=== PATIENT | female | born 1975 | race American Indian/Alaskan Native ===

== ENCOUNTER 2018-08-03 22:05 | Emergency (ER) | payer MEDICAID, OTHER ==
[2018-08-03 22:05] VITALS: BMI 43.5
[2018-08-04 00:12] LABS: BASO % 0.4 % (0.0-2.0); EOS # 0.1 K/uL (0.0-0.7); EOS % 1.6 % (0.0-4.0); HEMOGLOBIN 11.5 g/dL (12.0-16.0); LYMPH % 21.8 % (20.0-40.0); MEAN CELL VOLUME 81.9 fl (81.0-99.0); MEAN CORPUSCULAR HEMOGLOBIN 26.5 pg (27.0-31.0); MEAN CORPUSCULAR HGB CONC 32.4 g/dL (33.0-37.0); MEAN PLATELET VOLUME 9.2 fl (7.2-11.7); MONO # 0.8 K/uL (0.0-0.8); MONO % 8.3 % (0.0-10.0); NEUT # 6.2 K/uL (1.8-7.0); NEUT % 67.9 % (50.0-75.0); RBC 4.32 Mil/uL (3.80-5.20); RED CELL DISTRIBUTION WIDTH 13.9 % (11.5-14.5); WHITE BLOOD COUNT 9.1 K/uL (4.8-10.8)
[2018-08-04 00:20] LABS: BLOOD UREA NITROGEN 14 mg/dl (7-17); GFR NON-AFRICAN AMERICAN > 60
[2018-08-04 01:08] LABS: SQUAMOUS EPITHIAL 2 /hpf (0-5); URINE BILIRUBIN NEGATIVE (NEGATIVE); URINE BLOOD SMALL (NEGATIVE); URINE CLARITY SLIGHTY-CLOUDY (Clear); URINE COLOR YELLOW (YELLOW); URINE GLUCOSE (UA) NEG (NEGATIVE); URINE LEUKOCYTE ESTERASE NEG Leu/uL (Negative); URINE PROTEIN NEGATIVE (NEGATIVE)
--- NOTE | 2018-08-04 01:34 | ED PDOC ---
HPI: Abdomen Time Seen by Provider: 08/03/18 22:40 Chief Complaint (Nursing): Female Genitourinary Chief Complaint (Provider): Abdominal pain History Per: Patient History/Exam Limitations: no limitations Onset/Duration Of Symptoms: Days Current Symptoms Are (Timing): Still Present Additional Complaint(s): 42 year old female who is 4 weeks presents to the ED for an evaluation of worsening abdominal pain with increased vaginal bleeding. Patient states she has vaginal bleeding since last week for which she went to [facility] where she received an US that presented IUP and HCG count around 800. Patient was discharged home with follow-up instructions. Patient reports she has developed lower abdominal pain with heavy vaginal bleed with no passage of t issue or clots and denies any other symptoms. PMD: no family provider Abnormal Vaginal Bleeding: Yes Past Medical History Reviewed: Historical Data, Nursing Documentation, Vital Signs Vital Signs: Last Vital Signs Temp 998.5 F H 08/03/18 22:08 Pulse 96 H 08/03/18 22:08 Resp 16 08/03/18 22:08 BP 132/83 08/03/18 22:08 Pulse Ox 100 08/03/18 22:08 Primary Care Provider: FAMILY PROVIDER,NO - Medical History PMH: No Chronic Diseases Denies: Anxiety, Bipolar Disorder, Depression, Personality Disorder, Post Traumatic Stress Disorder, Schizophrenia - Family History Family History: States: Unknown Family Hx - Immunization History Hx Tetanus Toxoid Vaccination: No Hx Influenza Vaccination: No Hx Pneumococcal Vaccination: No - Home Medications Home Medications: Ambulatory Orders Medication Instructions Recorded No Known Home Med 07/28/18 - Allergies Allergies/Adverse Reactions: Allergies Allergy/AdvReac Type Severity Reaction Status Date / Time No Known Allergies Allergy Verified 08/03/18 22:06 Review of Systems ROS Statement: Except As Marked, All Systems Reviewed And Found Negative Cardiovascular: Negative for: Chest Pain Respiratory: Negative for: Cough Gastrointestinal: Positive for: Abdominal Pain. Negative for: Nausea, Vomiting, Diarrhea Genitourinary Female: Positive for: Vaginal Bleeding. Negative for: Dysuria, Frequency, Incontinence Physical Exam - Reviewed Nursing Documentation Reviewed: Yes Vital Signs Reviewed: Yes - Physical Exam Appears: Positive for: Non-toxic, No Acute Distress Head Exam: Positive for: ATRAUMATIC, NORMAL INSPECTION, NORMOCEPHALIC Skin: Positive for: Normal Color, Warm, Dry Eye Exam: Positive for: EOMI, Normal appearance, PERRL ENT: Positive for: Normal ENT Inspection Neck: Positive for: Normal, Painless ROM, Supple. Negative for: Decreased ROM Cardiovascular/Chest: Positive for: Regular Rate, Rhythm. Negative for: Murmur Respiratory: Positive for: Normal Breath Sounds. Negative for: Respiratory Distress Gastrointestinal/Abdominal: Positive for: Soft, Tenderness (lower abdomen ) Pelvic Exam: Positive for: Other (pelvic exam differed as patient states she wants to wait) Back: Positive for: Normal Inspection Extremity: Positive for: Normal ROM. Negative for: Tenderness, Pedal Edema, Deformity Neurological/Psych: Positive for: Awake, Alert, Normal Tone, Oriented (x3). Negative for: Motor/Sensory Deficits - Laboratory Results Result Diagrams: 08/04/18 00:07 08/04/18 00:07 Lab Results: Urine Color Yellow (YELLOW) 08/04/18 00:52 Urine Clarity Slighty-cloudy (Clear) 08/04/18 00:52 Urine pH 6.0 (5.0-8.0) 08/04/18 00:52 Ur Specific [place] 1.026 (1.003-1.030) 08/04/18 00:52 Urine Protein Negative mg/dL (NEGATIVE) 08/04/18 00:52 Urine Glucose (UA) Neg mg/dL (NEGATIVE) 08/04/18 00:52 Urine Ketones Negative mg/dL (NEGATIVE) 08/04/18 00:52 Urine Blood Small (NEGATIVE) 08/04/18 00:52 Urine Nitrate Negative (NEGATIVE) 08/04/18 00:52 Urine Bilirubin Negative (NEGATIVE) 08/04/18 00:52 Urine Urobilinogen 2.0 mg/dL (0.2-1.0) H 08/04/18 00:52 Ur Leukocyte Esterase Neg Bahman/uL (Negative) 08/04/18 00:52 Urine RBC (Auto) 5 /hpf (0-3) H 08/04/18 00:52 Urine Microscopic WBC 2 /hpf (0-5) 08/04/18 00:52 Ur Squamous Epith Cells 2 /hpf (0-5) 08/04/18 00:52 Beta HCG, Quant 991.18 mIU/mL 08/04/18 00:07 - ECG O2 Sat by Pulse Oximetry: 100 (RA) Pulse Ox Interpretation: Normal Medical Decision Making Medical Decision Making: Time: 2247 Impression: threatened . Will order UTI, labs, HCG, pelvic US BBK type and screen BMP BETA-HCG, quantitative CBC w/ differential Acetaminophen 650mg UA Preg 1st trimester/OB TV US Re-evaluation 252 Obstetric ultrasound, first trimester. Indication: Vaginal bleeding. Technique: Real-time ultrasound images were obtained. Findings: Anteverted uterus measuring 8.5x6 cm. Normal cervical length measuring 2.9 cm. Diffusely thickened endometrium measuring 25 mm. Single, live intrauterine gestation. The gestational sac measures 1.06 cm which corresponds to an estimated gestation age of 5 weeks and one day. Nonvisualization of the right ovary. 2.3 cm corpus luteum cyst of the left ovary. Impression: Small gestational sac in the body of the uterus. Enlarged yolk sac. Left ovarian corpus luteum cyst. Electronically signed on August 04, 2018 2:53:24 AM EDT by: Maria Wolfe M.D., Certified by ABR, MSK, Neuroradiology 0345 Labs are normal and there is no sign of UTI Patient advised to follow-up with heritage consultant and take Tylenol for pain Scribe Attestation: Documented by Reginald Flower, acting as a scribe for Zaira Rogers MD Provider Scribe Attestation: All medical record entries made by the Scribe were at my direction and personally dictated by me. I have reviewed the chart and agree that the record accurately reflects my personal performance of the history, physical exam, medical decision making, and the department course for this patient. I have also personally directed, reviewed, and agree with the discharge instructions and disposition. Disposition - Clinical Impression Clinical Impression: Abdominal pain during , Threatened - Patient ED Disposition Is Patient to be Admitted: No - Disposition Disposition: Routine/Home Disposition Time: 03:45 Condition: IMPROVED Additional Instructions: Follow up with heritage consultant. Take Tylenol for pain. Return to the emergency department if symptoms worsen or if new symptoms develop. Instructions: Threatened Miscarriage (DC), Bleeding With (DC) Forms: [employer] (Moroccan), [facility] ED School/Work Excuse Print Language: FAROESE
[2018-08-04 08:21] VITALS: BP 129/66; PULSE 88; RESP 18; TEMP 98.5
--- NOTE | 2018-08-04 09:40 | US ---
Date of service: 08/04/2018 PROCEDURE: OB Pelvic Ultrasound HISTORY: vag bleed LMP: 05/22/2018 COMPARISON: None available. FINDINGS: UTERUS: Gestational sac: Single intrauterine gestation. Heart rate: 0 bpm. age (Ultrasound estimated): 5 weeks 1 day +/-0 weeks 3 days Mariluz-gestational hemorrhage: None. Date of delivery (Ultrasound estimated) : 04/05/2019 Uterus measures 8.5 x 6.1 x 7.5 cm. Normal in size and appearance. CERVIX: Measures 2.8 cm. Long and closed. No cervical abnormality seen. RIGHT OVARY: The right ovary is not seen in this examination. LEFT OVARY: Measures 3.8 x 2.7 x 2.1 cm. No solid mass. Normal flow. 1.3 x 2.3 x 1.7 centimeters cyst seen in the left ovary. FREE FLUID: None. OTHER FINDINGS: None. IMPRESSION: Uterine gestational sac contains yolk sac. pole is seen. No heart activity at appreciated in this examination. The ultrasound estimated gestational age is 5 weeks 1 day +/-0 weeks 3 days. Enlarged yolk sac. Correlation with beta HCG level and close follow-up reassessment is recommended. Preliminary report was submitted by [facility] Radiology contains concordant findings.
[2018-08-06 03:26] VITALS: O2SAT 100
== END 2018-08-04 04:05 | disposition home or self-care (01) ==
LOC: H.ER 22:05
DX: O20.0 Threatened abortion (principal); Z3A.01 Less than 8 weeks gestation of pregnancy